=== PATIENT | female | born 1950 | race Caucasian/White ===

== ENCOUNTER 2024-07-01 10:11 | Emergency (ER) | payer MEDICARE, OTHER, SELFPAY ==
[2024-07-01 10:18] VITALS: BP 152/64; PULSE 62; TEMP 36.5; BMI 25.8
--- NOTE | 2024-07-01 10:40 | CT_ITS ---
The [address] [address] Patient Name: MELISSA PACHECO MRN: [id number] date: 1950 Sex: F Assigned Patient Location: ED.MAIN Current Patient Location: ED.MAIN Accession/Order Number: [id number] Exam Date: 07/01/2024 11:01 Report Date: 07/01/2024 11:39 At the request of: EYAL GLASER Procedure: CT head/brain wo con CT head/brain wo con, 07/01/2024 11:01 AM EDT INDICATION: fall, head injury COMPARISON: No prior CT scan of the head available for comparison at the time of this dictation. TECHNIQUE: Axial CT images of the brain from skull base to vertex, including portions of the face and sinuses, were obtained without contrast. Multiplanar reformatted images were generated and reviewed as needed. FINDINGS: No intra-axial mass, hydrocephalus, midline shift or acute hemorrhage. No extra-axial collection. Periventricular and deep white matter microvascular ischemic change. Blackman-white matter differentiation is preserved. Mucosal thickening within a few right ethmoid air cells. The remaining visualized paranasal sinuses and mastoid air cells are clear. Left supraorbital laceration. Orbits are within normal limits. No acute skull fracture. CT/CT head/brain wo con IMPRESSION: No acute intracranial infarct or hemorrhage. Electronically authenticated by: PARISH COBURN Date: 07/01/2024 11:39
--- NOTE | 2024-07-01 10:45 | XR_ITS ---
The [address] [address] Patient Name: MELISSA PACHECO MRN: [id number] date: 1950 Sex: F Assigned Patient Location: ED.MAIN Current Patient Location: ED.MAIN Accession/Order Number: [id number] Exam Date: 07/01/2024 11:01 Report Date: 07/01/2024 11:39 At the request of: EYAL GLASER Procedure: XR shoulder LT min 2V EXAM: XR shoulder LT min 2V HISTORY: fall, pain COMPARISON: None. FINDINGS/IMPRESSION: 1. No acute fracture or dislocation. 2. Left total shoulder arthroplasty hardware. No apparent hardware complication. 3. Mild degeneration of the left acromioclavicular joint. 4. Moderate degeneration of the lower cervical spine. Electronically authenticated by: SALIMA REID Date: 07/01/2024 11:39
--- NOTE | 2024-07-01 10:45 | XR_ITS ---
The [address] [address] Patient Name: MELISSA PACHECO MRN: [id number] date: 1950 Sex: F Assigned Patient Location: ED.MAIN Current Patient Location: ED.MAIN Accession/Order Number: [id number] Exam Date: 07/01/2024 11:01 Report Date: 07/01/2024 11:39 At the request of: EYAL GLASER Procedure: XR hand LT min 3V EXAM: XR hand LT min 3V INDICATION: fall , pain 3rd, 4th digit. COMPARISON: None. TECHNIQUE: Left hand, 3 views FINDINGS: Minimally displaced oblique fracture of the proximal fifth metacarpal. Severe degenerative changes of the first CMC and triscaphe joints and mild degenerative changes of the IP joints. Medial hand soft tissue swelling. XR/XR hand LT min 3V IMPRESSION: Minimally displaced proximal fifth metacarpal fracture. Electronically authenticated by: JULES HENRIQUEZ Date: 07/01/2024 11:39
--- NOTE | 2024-07-01 10:56 | ED.FALL1 ---
HPI HPI - Fall General Chief Complaint: Fall Stated Complaint: HEAD SHOULDER HAND INJURY DUE TO A FALL Time Seen by Provider: 07/01/24 10:55 Source: patient Mode of arrival: Wheelchair Limitations: no limitations History of Present Illness HPI Narrative: This patient with new injury to her shoulder had an left hand. She was [facility] the [employer] [facility] and says she just did not [employer] her feet she stumbled and fell hitting her head. There is no loss of consciousness. She remembers all the details of the event. She had bilateral shoulder replacement but only left shoulder is sore. Also her left nondominant hand is sore. She says she does not have any confusion she has not had nausea or vomiting. She is not on any blood thinners. Family members can confirm this information. She has no neck pain, she has no paresis paresthesias tingling or numbness to the extremities. Related Data Home Medications ?Medication ?Instructions ?Recorded ?Confirmed aspirin 81 mg capsule 81 mg PO DAILY 07/01/24 07/01/24 lisinopril 10 mg tablet (Zestril) 10 mg PO DAILY 07/01/24 07/01/24 omega 3-aaf-xsr-fish oil 1,000 mg 1 cap PO DAILY 07/01/24 07/01/24 (120 mg-180 mg) capsule (Fish Oil) sertraline 25 mg tablet 25 mg PO DAILY 07/01/24 07/01/24 simvastatin 20 mg tablet 20 mg PO QPM 07/01/24 07/01/24 Allergies Allergy/AdvReac Type Severity Reaction Status Date / Time No Known Drug Allergies Allergy Verified 07/01/24 10:17 Opioid HPI Opioid Management Most Recent Pain and Opioid Data: Last Pain Scale 4 07/01/24 10:33 Exam Narrative Exam Narrative: Awake alert [place] x 3 GCS 15. No evidence of short or long-term memory loss. No confusion. Here with her son. HEENT examination shows no tenderness or palpation of the neck or anterior cervical area. She has irregular laceration above the left eyebrow. Bleeding is controlled at this time. Cranial nerves II through XII are normal. Extraocular muscles are normal she has no visual symptomatology. She has had bilateral shoulder surgery and although there is no deformity over the left shoulder she does have some discomfort with movement. Also has most of her discomfort over the left fifth index finger. She has no pain in her wrist forearm or elbow. Lower extremities are normal. Constitutional Vital Signs, click to edit/add: Last Vital Signs Temp 97.7 F 07/01/24 10:18 Pulse 62 07/01/24 10:18 Resp 18 07/01/24 10:18 BP 152/64 H 07/01/24 10:18 Course Vital Signs Vital signs: Vital Signs Temperature 97.7 F 07/01/24 10:18 Pulse Rate 62 07/01/24 10:18 Respiratory Rate 18 07/01/24 10:18 Blood Pressure 152/64 H 07/01/24 10:18 Temperature 97.7 F 07/01/24 10:18 Pulse Rate 62 07/01/24 10:18 Respiratory Rate 18 07/01/24 10:18 Blood Pressure 152/64 H 07/01/24 10:18 MDM - Fall MDM Narrative Medical decision making narrative: Becauseof the location of the wound and the mechanism of the fall a CT scan was done. It was read by the radiologist as no acute findings. The x-ray of the digit and hand does show a minimally displaced fracture of the left i fifth digit. The rest the hand is normal. Shoulder x-rays do not show any bony abnormality. Procedure note attending to the laceration in the forehead the wound was anesthetized with lidocaine 1% with epinephrine. There was good hemostasis. There is no ongoing bleeding. There is no foreign body. There is a small flap at the upper lateral border of the wound. The wound was prepped with Betadine and then two 5-0 Vicryl's were used to reapproximate the area of the irregular flap. This facilitated wound approximation and then the rest of the wound was closed with eleven 6-0 nylon simple interrupted sutures. Wound approximation was excellent bleeding was controlled and dressings were applied. The wound length was approximately 3.5 cm Discharge Plan Discharge Stand Alone Forms: Work/School Release, Portal Instructions Chief Complaint: Fall Clinical Impression: Fall, Fracture of finger of left hand, Facial laceration Patient Disposition: Home, Self-Care Time of Disposition Decision: 12:35 Prescriptions / Home Meds: No Action lisinopril [Zestril] 10 mg tablet 10 mg PO DAILY simvastatin 20 mg tablet 20 mg PO QPM sertraline 25 mg tablet 25 mg PO DAILY aspirin 81 mg capsule 81 mg PO DAILY omega 6-mtk-huj-fish oil [Fish Oil] 1,000 mg (120 mg-180 mg) capsule 1 cap PO DAILY Print Language: Turkmen Additional Instructions: Cold compresses to the wound. Wound care sheet with topical bacitracin/Tylenol for pain/sutures out 5 to 6 days/follow-up with orthopedic evaluation for the finger Referrals: BREANA CUNHA [Primary Care Provider] - 1 week
[2024-07-01] MEDS: LIDOCAINE HCL 1%-EPINEPHRINE 1:100,000 20 ML MDV INJ (11:50)
[2024-07-01] MEDS: ADACEL DIPH,PERTUSS(ACELL),TET VAC/PF 0.5 ML ADULT SYRINGE IM (12:50)
[2024-07-01 13:03] VITALS: BP 151/68; PULSE 60; TEMP 36.6; O2SAT 98
== END 2024-07-01 12:57 | disposition home or self-care (01) ==
PROVIDERS: Emergency Provider Emergency Medicine Emergency Medical Services; PCP Family Medicine
DX: S01.112A Laceration without foreign body of left eyelid and periocular area, initial encounter (principal); S62.617A Displaced fracture of proximal phalanx of left little finger, initial encounter for closed fracture; Z96.612 Presence of left artificial shoulder joint; Z96.611 Presence of right artificial shoulder joint; W01.0XXA Fall on same level from slipping, tripping and stumbling without subsequent striking against object, initial encounter; Z23 Encounter for immunization
CPT/HCPCS: 12013; 70450; 73030; 73130; 90471; 90715; 99284